=== PATIENT | male | born 1945 | race Caucasian/White ===

== ENCOUNTER → 2018-06-30 | Outpatient (CLI) | payer OTHER, MEDICARE ==
--- NOTE | 2018-06-30 11:42 | DIAGNOSTIC IMAGING REPORT ---
R INJ MAJOR JNT SHLDR,HIP,KNEE CLINICAL HISTORY: R HIP DJDosteoarthritis. Pain. COMPARISON STUDY: None FLUOROSCOPY TIME: 9 seconds. FINDINGS: Following informed consent and description of procedure, a 25-gauge needle was inserted to the right hip joint space. Test injection confirmed its intra-articular location. This is followed by therapeutic steroid injection. There are no complications. IMPRESSION: Successful therapeutic injection right hip. The above report was generated using voice recognition software. It may contain grammatical, syntax or spelling errors. Electronically signed by: Gavin Galvan M.D. 06/30/2018 11:41 AM Dictated Date/Time: 06/30/2018 11:40 AM
== END | disposition home or self-care (01) ==
LOC: C.RADBC 10:55
PROVIDERS: ATTEND Orthopaedic Surgery Orthopaedic Surgery of the Spine
DX: M16.11 Unilateral primary osteoarthritis, right hip (principal)